=== PATIENT | female | born 1975 | race Two or more races ===

== ENCOUNTER 2019-05-15 07:29 | Emergency (ER) | payer MEDICAID ==
[~2019-05-15] VITALS: Ht 160 cm; Wt 104.8 kg
[2019-05-15 08:07] VITALS: BP 129/89
[2019-05-15 08:14] LABS: Urine Bacteria FEW /hpf (None Seen); Urine Blood Negative /uL (Negative); Urine Mucus FEW (None Seen); Urine Specific Gravity 1.029 (1.001-1.035); Urine WBC 2 /hpf (0 - 5)
[2019-05-15 08:26] LABS: Basophils # (auto) 0.1 uL; Basophils % (auto) 0.6 % (0.0-2.0); Eosinophils # (auto) 0 uL; Eosinophils % (auto) 0.1 % (0.0-7.0); Hematocrit 43.5 % (36.0-46.0); Hemoglobin 14.7 g/dL (12.2-16.2); Lymphocytes # (auto) 0.9 uL; Lymphocytes % (auto) 9.3 % (10.0-50.0); Mean Corpuscular Hemoglobin 29.9 pg (28.0-32.0); Mean Corpuscular Hgb Conc. 33.9 g/dL (32.0-36.0); Mean Corpuscular Volume 88.3 fL (80.0-100.0); Monocytes # (auto) 0.6 uL; Neutrophils # (auto) 8.4 uL; Platelet Count (auto) 229 10^3/uL (140-450); Red Blood Cells 4.92 10^6/uL (4.0-5.20); Red Cell Distribution Width 13.8 % (11.8-14.3)
[2019-05-15 08:50] LABS: Albumin 4.1 g/dL (3.4-5.0); BUN/Creatinine Ratio 19.5; Calcium 9.1 mg/dL (8.5-10.1); Potassium 4.2 mmol/L (3.5-5.1)
[2019-05-15 08:53] LABS: Bilirubin, Total 0.6 mg/dL (0.2-1.0); Total Protein 8.1 g/dL (6.4-8.2)
[2019-05-15] MEDS ORDERED: DICYCLOMINE HCL 10 MG CAP PO ONE (09:15)
[2019-05-15] MEDS ORDERED: ONDANSETRON ODT 4 MG TAB PO ONE (09:15)
[2019-05-15] MEDS ORDERED: KETOROLAC TROMETH 60MG/2ML VIAL IM ONE (09:30)
[2019-05-15] MEDS ORDERED: PANTOPRAZOLE 40 MG TAB PO ONE (09:30)
== END 2019-05-15 10:24 | disposition home or self-care (01) ==
LOC: ER 07:38
DX: K52.9 Noninfective gastroenteritis and colitis, unspecified (principal); R16.0 Hepatomegaly, not elsewhere classified; Z86.39 Personal history of other endocrine, nutritional and metabolic disease
CPT/HCPCS: 36415; 76705; 80053; 81001; 81025; 83690; 85025; 96372; 99284; J1885; Q0162

== ENCOUNTER 2019-10-06 17:44 | Emergency (ER) | payer MEDICAID ==
[~2019-10-06] VITALS: Ht 160 cm; Wt 97.5 kg
[2019-10-06 20:00] VITALS: BP 128/90
== END 2019-10-06 20:47 | disposition home or self-care (01) ==
LOC: ER 17:44
DX: S93.602A Unspecified sprain of left foot, initial encounter (principal); S93.402A Sprain of unspecified ligament of left ankle, initial encounter; W19.XXXA Unspecified fall, initial encounter; Y93.89 Activity, other specified; Y99.8 Other external cause status; Y92.89 Other specified places as the place of occurrence of the external cause
CPT/HCPCS: 73610; 73630

== ENCOUNTER 2021-03-17 15:21 | Inpatient (IN) | payer MEDICAID ==
[~2021-03-17] VITALS: Ht 160 cm; Wt 76.4 kg
[2021-03-17] MEDS ORDERED: SODIUM CHLORIDE 0.9% 1,000 ML IVB ONE (16:00)
[2021-03-17 16:22] LABS: Basophils # (auto) 0 10 ^3/uL (0-0.2); Basophils % (auto) 0.4 % (0.0-2.0); Eosinophils # (auto) 0 10 ^3/uL (0-0.8); Eosinophils % (auto) 0.2 % (0.0-7.0); Hematocrit 38.4 % (36.0-46.0); Lymphocytes # (auto) 1.6 10 ^3/uL (0.4-5.4); Mean Corpuscular Hemoglobin 30.5 pg (28.0-32.0); Mean Corpuscular Hgb Conc. 33.8 g/dL (32.0-36.0); Mean Corpuscular Volume 90.4 fL (80.0-100.0); Monocytes # (auto) 0.7 10 ^3/uL (0-1.3); Monocytes % (auto) 8.6 % (0.0-12.0); Neutrophils # (auto) 6.4 10 ^3/uL (1.6-8.6); Neutrophils % (auto) 72.8 % (37.0-80.0); Red Blood Cells 4.25 10^6/uL (4.0-5.20); Red Cell Distribution Width 12.9 % (11.8-14.3); White Blood Cell 8.7 10^3/uL (4.4-10.8)
[2021-03-17 16:58] LABS: Anion Gap 10 (5-15); Blood Urea Nitrogen 16 mg/dL (7-18); Calcium 8.9 mg/dL (8.5-10.1); Carbon Dioxide 21 mmol/L (21-32); Chloride 110 mmol/L (98-107); Glucose 99 mg/dL (74-106); Magnesium 2.5 mg/dL (1.6-2.6); Potassium 3.5 mmol/L (3.5-5.1); Sodium 141 mmol/L (136-145)
[2021-03-17 17:05] LABS: Alanine Aminotransferase 379 U/L (13-56); Alkaline Phosphatase 116 U/L (45-117); Aspartate Aminotransferase 249 U/L (15-37); BUN/Creatinine Ratio 25.8; Bilirubin, Total 1.6 mg/dL (0.2-1.0); GFR African American 134 mL/min; GFR Non-African American 111 mL/min; Total Protein 7.6 g/dL (6.4-8.2)
[2021-03-17] MEDS ORDERED: cefTRIAXone 1GM/50ML D5W 50 ML IV ONE (18:00)
[2021-03-17] MEDS ORDERED: HYDROcodone-ACET 5/325MG TAB PO PRN (19:00)
[2021-03-17] MEDS ORDERED: TEMAZEPAM 15 MG CAP PO PRN (19:00)
[2021-03-17] MEDS ORDERED: NITROGLYCERIN 0.4 MG SL TAB SL PRN (19:00)
[2021-03-17] MEDS ORDERED: DOCUSATE SOD 100 MG CAP PO PRN (19:00)
[2021-03-17] MEDS ORDERED: ONDANSETRON HCL 4 MG/2 ML VIAL IV PRN (19:00)
[2021-03-17] MEDS ORDERED: ACETAMINOPHEN 325 MG TAB PO PRN (19:00)
[2021-03-17] MEDS ORDERED: MORPHINE SULFATE INJECTION 2 MG/ML SYRG IV PRN (19:00)
[2021-03-17 21:15] VITALS: BP 101/60
[2021-03-17 22:25] VITALS: BP 101/60
[2021-03-17] MEDS ORDERED: ASCO500T11 PO (23:13)
[2021-03-17] MEDS ORDERED: MULTCAP45 PO (23:13)
[2021-03-17] MEDS ORDERED: THIA50TA7 PO (23:13)
[2021-03-17] MEDS ORDERED: POM (23:13)
[2021-03-17] MEDS ORDERED: LEVO88TA4 PO (23:13)
[2021-03-18] MEDS: SODIUM CHLORIDE 0.9% 1,000 ML IV SCH ×4 (00:04→22:06)
[2021-03-18 05:25] VITALS: BP 99/50
[2021-03-18 06:46] LABS: Basophils # (auto) 0 10 ^3/uL (0-0.2); Basophils % (auto) 0.6 % (0.0-2.0); Eosinophils # (auto) 0.1 10 ^3/uL (0-0.8); Eosinophils % (auto) 1.1 % (0.0-7.0); Hematocrit 33.7 % (36.0-46.0); Hemoglobin 11.6 g/dL (12.2-16.2); Lymphocytes # (auto) 3.1 10 ^3/uL (0.4-5.4); Lymphocytes % (auto) 40.8 % (10.0-50.0); Mean Corpuscular Hemoglobin 31.4 pg (28.0-32.0); Mean Corpuscular Hgb Conc. 34.4 g/dL (32.0-36.0); Mean Corpuscular Volume 91.3 fL (80.0-100.0); Monocytes # (auto) 0.6 10 ^3/uL (0-1.3); Monocytes % (auto) 7.7 % (0.0-12.0); Neutrophils # (auto) 3.8 10 ^3/uL (1.6-8.6); Neutrophils % (auto) 49.8 % (37.0-80.0); Red Blood Cells 3.69 10^6/uL (4.0-5.20); Red Cell Distribution Width 12.6 % (11.8-14.3); White Blood Cell 7.6 10^3/uL (4.4-10.8)
[2021-03-18 06:56] LABS: Potassium 4.3 mmol/L (3.5-5.1)
[2021-03-18 07:01] LABS: Albumin 3.4 g/dL (3.4-5.0); BUN/Creatinine Ratio 27.7; Calcium 8.2 mg/dL (8.5-10.1)
[2021-03-18 07:16] LABS: Bilirubin, Total 0.7 mg/dL (0.2-1.0); Total Protein 6.5 g/dL (6.4-8.2)
[2021-03-18 09:00] VITALS: BP 97/54
[2021-03-18] MEDS: cefTRIAXone 1GM/50ML D5W 50 ML IV SCH (12:52)
[2021-03-18 13:00] VITALS: BP 91/56
[2021-03-18 17:00] VITALS: BP 99/58
[2021-03-18 22:00] VITALS: BP 100/65
[2021-03-19] MEDS: SODIUM CHLORIDE 0.9% 1,000 ML IV SCH ×3 (04:38→21:00)
[2021-03-19 05:00] VITALS: BP 98/55
[2021-03-19] MEDS: PANTOPRAZOLE 40 MG/10 ML VIAL INJ IV SCH (08:40)
[2021-03-19] MEDS: cefTRIAXone 1GM/50ML D5W 50 ML IV SCH (08:40)
[2021-03-19 09:00] VITALS: BP 101/61
[2021-03-19 11:41] LABS: Urine Bacteria FEW /hpf (None Seen); Urine Blood Negative /uL (Negative); Urine Specific Gravity 1.004 (1.001-1.035); Urine WBC 1 /hpf (0 - 5)
[2021-03-19 13:00] VITALS: BP 122/71
[2021-03-19 17:00] VITALS: BP 101/65
[2021-03-19 22:00] VITALS: BP 112/64
[2021-03-20 05:00] VITALS: BP 107/66
[2021-03-20] MEDS: SODIUM CHLORIDE 0.9% 1,000 ML IV SCH ×2 (05:45→16:30)
[2021-03-20 09:00] VITALS: BP 111/63
[2021-03-20] MEDS: PANTOPRAZOLE 40 MG/10 ML VIAL INJ IV SCH (09:41)
[2021-03-20] MEDS: cefTRIAXone 1GM/50ML D5W 50 ML IV SCH (09:41)
[2021-03-20 10:06] LABS: Albumin 3.2 g/dL (3.4-5.0); Calcium 8.5 mg/dL (8.5-10.1); Potassium 4.2 mmol/L (3.5-5.1)
[2021-03-20 10:10] LABS: BUN/Creatinine Ratio 14.6; Bilirubin, Total 0.6 mg/dL (0.2-1.0); Total Protein 6.7 g/dL (6.4-8.2)
[2021-03-20 12:56] VITALS: BP 107/70
[2021-03-20 16:59] LABS: INR 1.12 (0.9-1.15)
[2021-03-20 17:00] VITALS: BP 100/50
[2021-03-20 22:00] VITALS: BP 102/66
[2021-03-21] MEDS: SODIUM CHLORIDE 0.9% 1,000 ML IV SCH ×3 (01:00→12:38)
[2021-03-21 05:00] VITALS: BP 96/54
[2021-03-21] MEDS ORDERED: cefTRIAXone 1GM/50ML D5W 50 ML IV ONE (06:59)
[2021-03-21] MEDS ORDERED: BUPIVACAINE 0.25% INJ 50ML VIAL ONE (07:04)
[2021-03-21] MEDS ORDERED: ROCURONIUM 10MG/ML 10ML VIAL IV ONE (07:42)
[2021-03-21] MEDS ORDERED: MIDAZOLAM HCL 2MG/2ML 2ml VIAL (1mg/ml) ONE (07:42)
[2021-03-21] MEDS ORDERED: MEPERIDINE HCL (50 MG/ML) 1 ML VIAL ONE (07:42)
[2021-03-21] MEDS ORDERED: fentaNYL CITRATE 100 MCG/2 ML VL ONE (07:42)
[2021-03-21] MEDS ORDERED: HYDROmorphone HCL 2 MG/ML VL IV PRN (08:15)
[2021-03-21] MEDS ORDERED: DexAMETHasone SOD PHOS 10MG/1ML VIAL INJ ONE (08:15)
[2021-03-21] MEDS ORDERED: fentaNYL CITRATE 100 MCG/2 ML VL IV PRN (08:15)
[2021-03-21] MEDS ORDERED: MORPHINE SULFATE 4 MG/ML SYR/VIAL IV PRN (08:15)
[2021-03-21] MEDS ORDERED: ePHEDrine SULFATE 50 MG/ML AMP IV PRN (08:15)
[2021-03-21] MEDS ORDERED: ONDANSETRON HCL 4 MG/2 ML VIAL IV PRN (08:15)
[2021-03-21] MEDS ORDERED: LABETALOL HCL 5 MG/ML 4ML SYRINGE IV PRN (08:15)
[2021-03-21] MEDS ORDERED: ONDANSETRON HCL 4 MG/2 ML VIAL ONE (08:28)
[2021-03-21] MEDS ORDERED: PROPOFOL 10 MG/ML 20 ML IV ONE (08:28)
[2021-03-21] MEDS: cefTRIAXone 1GM/50ML D5W 50 ML IV SCH (09:00)
[2021-03-21] MEDS: PANTOPRAZOLE 40 MG/10 ML VIAL INJ IV SCH (11:35)
[2021-03-21] MEDS: MORPHINE SULFATE 4 MG/ML SYR/VIAL IV PRN (11:36)
[2021-03-21 13:00] VITALS: BP 106/74
[2021-03-21 17:00] VITALS: BP 92/54
[2021-03-21 22:00] VITALS: BP 101/63
[2021-03-22] MEDS: SODIUM CHLORIDE 0.9% 1,000 ML IV SCH ×3 (00:53→15:40)
[2021-03-22] MEDS: MORPHINE SULFATE 4 MG/ML SYR/VIAL IV PRN (03:51)
[2021-03-22 05:00] VITALS: BP 95/60
[2021-03-22 06:53] LABS: Basophils # (auto) 0 10 ^3/uL (0-0.2); Basophils % (auto) 0.2 % (0.0-2.0); Eosinophils # (auto) 0 10 ^3/uL (0-0.8); Eosinophils % (auto) 0.1 % (0.0-7.0); Hematocrit 34.1 % (36.0-46.0); Hemoglobin 11.7 g/dL (12.2-16.2); Lymphocytes # (auto) 1.4 10 ^3/uL (0.4-5.4); Lymphocytes % (auto) 10.5 % (10.0-50.0); Mean Corpuscular Hemoglobin 30.7 pg (28.0-32.0); Mean Corpuscular Hgb Conc. 34.3 g/dL (32.0-36.0); Mean Corpuscular Volume 89.5 fL (80.0-100.0); Monocytes # (auto) 0.8 10 ^3/uL (0-1.3); Monocytes % (auto) 6.1 % (0.0-12.0); Neutrophils % (auto) 83.1 % (37.0-80.0); Red Blood Cells 3.81 10^6/uL (4.0-5.20); Red Cell Distribution Width 12.5 % (11.8-14.3); White Blood Cell 13.2 10^3/uL (4.4-10.8)
[2021-03-22 07:10] LABS: Potassium 3.6 mmol/L (3.5-5.1)
[2021-03-22 07:21] LABS: Albumin 3.2 g/dL (3.4-5.0); BUN/Creatinine Ratio 6.7; Bilirubin, Total 0.6 mg/dL (0.2-1.0); Calcium 8.6 mg/dL (8.5-10.1); Magnesium 2.1 mg/dL (1.6-2.6); Total Protein 6.3 g/dL (6.4-8.2)
[2021-03-22 08:58] VITALS: BP 102/59
[2021-03-22] MEDS: cefTRIAXone 1GM/50ML D5W 50 ML IV SCH (10:09)
[2021-03-22] MEDS: PANTOPRAZOLE 40 MG/10 ML VIAL INJ IV SCH (10:09)
[2021-03-22 13:07] VITALS: BP 94/52
[2021-03-22 16:54] VITALS: BP 94/52
== END 2021-03-22 17:30 | disposition home or self-care (01) | DRG 263 ==
LOC: ER 15:21 → EDBD 15:21 → TELE 18:57 → TELE-CENTR 20:57
PROVIDERS: ADMIT Nurse Practitioner; ATTEND Nurse Practitioner
PROC: 0W9G4ZZ Drainage of Peritoneal Cavity, Percutaneous Endoscopic Approach (ICD-10-PCS; 2021-03-21)
PROC: 0FT44ZZ Resection of Gallbladder, Percutaneous Endoscopic Approach (ICD-10-PCS; principal; 2021-03-21 07:47)
DX: K80.00 Calculus of gallbladder with acute cholecystitis without obstruction (principal); K65.1 Peritoneal abscess; K65.3 Choleperitonitis; K85.10 Biliary acute pancreatitis without necrosis or infection; J18.9 Pneumonia, unspecified organism; K57.90 Diverticulosis of intestine, part unspecified, without perforation or abscess without bleeding; Z20.822 Contact with and (suspected) exposure to COVID-19; Z98.84 Bariatric surgery status; Z82.49 Family history of ischemic heart disease and other diseases of the circulatory system
CPT/HCPCS: 36415; 71045; 74176; 74181; 76705; 80053; 81001; 82150; 83605; 83690; 83735; 84484; 84702; 85025; 85610; 87040; 87426; 93005; 96361; 96365; 96366; C9113; G0378; J0696; J1100; J2250; J2405; J2704; J3490

== ENCOUNTER 2025-03-01 12:59 | Emergency (ER) | payer MEDICAID ==
[~2025-03-01] VITALS: Ht 160 cm; Wt 87.9 kg
[~2025-03-01 12:59] MED LIST: ASCO500T11 PO; LEVO88TA4 PO; MULTCAP45 PO; POM; THIA50TA7 PO
--- NOTE | 2025-03-01 13:43 | ED.PDOC ---
Musculoskeletal HPI Comments 49 year old female with a past medical history of thyroid disease presents to the emergency department with a chief complaint of atraumatic LT arm pain onset 2 days. Patient states she began experiencing LT arm pain 2 days ago, noticed pain radiates to LT cervical region. Worsens with movement. Pain rated as moderate. Also notes she began experiencing tingling sensation of LT arm, has slight relief with massage. Patient has taken Ibuprofen 600 mg and well as Tramadol 50 mg, with temp improvement of symptoms. No other symptoms or modifying factors present at this time. Denies fevers, chills, sweats Denies fall, injury, trauma, Time Seen by MD: 13:30 Primary Care Provider: DR. ELLIS Reviewed Notes: Nurses Notes, Medications, Allergies Allergies: Uncoded Allergies: SULFA (Allergy, Unknown, ANGIOEDEMA, 03/20/21) Home Meds Active Scripts Naproxen (Naproxen) 500 Mg Tab, 500 MG PO BIDP PRN for 10 Days, #20 TAB 0 Refills Prov:REAGAN FRASER MANAGER OF CUSTOMER BILLING 03/01/25 Reported Medications Multiple Vitamin (Multivitamins) Unknown Strength Cap, PO DAILY, #30 CAP 3 Refills 03/17/21 Ascorbic Acid (VITAMIN C TABLET) Unknown Strength Tb, PO DAILY, #30 TAB 3 Refills 03/17/21 Thiamine Hcl (Vitamin B-1) Unknown Strength Tab, PO, TAB 03/17/21 Patients Own Medication (PATIENTS OWN MEDICATION) Unknown Strength . PTS OWN MED-OBTAIN FROM PT AND SEND TO RX DRUG: FREQ: RX# EXP: DATE DISP: TECH: [facility]: 03/17/21 Levothyroxine Sodium (Levothyroxine Sodium) 88 Mcg Tab, 88 MCG PO QAM for 30 Days, MCG 03/17/21 Information Source: Patient Mode of Arrival: Ambulatory Location: Left Extremity Location: Arm Timing: Days Prehospital treatment: Pain Meds Severity: Moderate Able to Move Extremity: Yes Bear Weight: Limited Pain: Moderate Mechanism: Spontaneous Circumstances: Spontaneous Onset of Symptoms: Spontaneous Symptoms: Pain DVT Risk Factors: NONE Associated signs and symptoms: Arm pain Past Medical History PAST MEDICAL HISTORY: Thyroid Surgical History: Cholecystectomy [employer] History: Denies all [employer] Hx Family History Family History: Reviewed,noncontributory to illness Social History Smoker: Non-Smoker Alcohol: Rarely Drugs: Denies Drug Use Lives In: Home All Other Systems: Reviewed and Negative (as per HPI) Physical Exam General Appearance: Normal HEENT: Normal ENT Inspection, Pharynx Normal, TMs Normal Neck: Full Range of Motion, Non-Tender, Normal, Normal Inspection Respiratory: Chest Non-Tender, Lungs Clear, No Accessory Muscle Use, No Respiratory Distress, Normal Breath Sounds Cardiovascular: No Murmur, No Gallop, Regular Rate/Rhythm Breast Exam: Deferred Gastrointestinal: No Organomegaly, Non Tender, No Pulsatile Mass, Normal Bowel Sounds, Soft Genitalia: Deferred Pelvic: Deferred Rectal: Deferred Extremities: No calf tenderness, Normal capillary refill, Non-tender, No pedal edema Musculoskeletal : Location: Left Extremity Location: Arm (Left Shoulder: No gross abnormality on inspection. No shoulder drop visible. No clavicular tenderness on palpation. Palpation tenderness to coracoid process and acromion process. No scapular, supraspinatus, infraspinatus tenderness to touch. Limited flexion passive movement due to pain. Pain with abduction. Apley test, Palma test and Empty can test Positive) Apperance: Normal Neurologic: Alert, railroad supervisor of engines II-XII nml as Tested, No Motor Deficits, Normal Affect, Normal Mood, No Sensory Deficits Cerebellar Function: Normal Reflexes: Normal Skin: Dry, Normal Color, Warm Lymphatic: No Adenopathy Was a procedure done? Was a procedure done?: No Differential Diagnosis EXT Differential Diagnosis: Sprain X-Ray, Labs, Meds, VS Vital Signs Date Time Temp Pulse Resp B/P (MAP) Pulse Ox O2 Delivery O2 Flow Rate FiO2 03/01/25 15:28 76 17 98 Room Air 03/01/25 15:28 98.5 76 17 143/55 (84) 98 98.5 03/01/25 13:20 98.5 87 17 118/79 (92) 100 98.5 Lab Test 03/01/25 14:02 03/01/25 13:45 Range/Units Urine Color Yellow Yellow Urine Clarity Turbid H Clear Urine pH 6.0 5.0-9.0 Urine Specific [place] 1.045 H 1.001-1.035 Urine Protein 1+ H Negative Urine Ketones 1+ H Negative Urine Blood 3+ H Negative /uL Urine Nitrite Negative Negative Urine Bilirubin Negative Negative Urine Urobilinogen 2 H Negative mg/dL Urine Leukocyte Esterase Trace Negative /uL Urine RBC 120 0 - 4 /hpf Urine Microscopic WBC 4 0-5 /HPF Urine Squamous Epithelial Cells Few <5 /hpf Urine Calcium Oxalate Crystals Few None Seen Urine Bacteria None seen None Seen /hpf Urine Mucus Few None Seen Urine Glucose Normal Normal mg/dL White Blood Count 7.1 4.4-10.8 10^3/uL Red Blood Count 4.40 4.0-5.20 10^6/uL Hemoglobin 12.3 12.2-16.2 g/dL Hematocrit 37.3 36.0-46.0 % Mean Corpuscular Volume 84.8 80.0-100.0 fL Mean Corpuscular Hemoglobin 28.0 28.0-32.0 pg Mean Corpuscular Hemoglobin Concent 33.0 32.0-36.0 g/dL Red Cell Distribution Width 15.0 H 11.8-14.3 % Platelet Count 240 140-450 10^3/uL Mean Platelet Volume 8.1 6.9-10.8 fL Neutrophils (%) (Auto) 56.3 37.0-80.0 % Lymphocytes (%) (Auto) 33.8 10.0-50.0 % Monocytes (%) (Auto) 8.5 0.0-12.0 % Eosinophils (%) (Auto) 1.3 0.0-7.0 % Basophils (%) (Auto) 0.1 0.0-2.0 % Neutrophils # (Auto) 4.0 1.6-8.6 10 ^3/uL Lymphocytes # (Auto) 2.4 0.4-5.4 10 ^3/uL Monocytes # (Auto) 0.6 0-1.3 10 ^3/uL Eosinophils # (Auto) 0.1 0-0.8 10 ^3/uL Basophils # (Auto) 0 0-0.2 10 ^3/uL Nucleated Red Blood Cells 0.0 % Sodium Level 142 136-145 mmol/L Potassium Level 4.8 3.5-5.1 mmol/L Chloride Level 107 98-107 mmol/L Carbon Dioxide Level 26 20-31 mmol/L Anion Gap 9 5-15 Blood Urea Nitrogen 9 9-23 mg/dL Creatinine 0.79 0.550-1.02 mg/dL Glomerular Filtration Rate Calc 92 >90 mL/min BUN/Creatinine Ratio 11.4 10.0-20.0 Serum Glucose 110 H 74-106 mg/dL Calcium Level 10.4 8.7-10.4 mg/dL Current Medications Medications (Trade) Dose Ordered Sig/Denise Route Start Time Stop Time Status Last Admin Ketorolac Tromethamine (Toradol Injection) 60 mg ONCE ONCE IM 03/01/25 15:00 03/01/25 15:01 DC 03/01/25 15:21 Methylprednisolone Sodium Succinate (Solu Medrol) 125 mg ONCE ONCE IM 03/01/25 15:00 03/01/25 15:01 DC 03/01/25 15:21 X-Ray, Labs, Meds, VS Comment 49 year old female with a past medical history of thyroid disease presents to the emergency department with a chief complaint of LT arm pain onset 2 days. Patient arrives alert and oriented, ABC's intact, afebrile, vital signs stable, saturating well in room air labs were ordered. CBC was ordered to exclude anemia, blood loss, or infection. BMP was ordered to exclude electrolyte abnormalities, renal failure, dehydration, hyperglycemia Urinalysis was ordered to rule out UTI or hematuria. + neck pain radiating to affected upper extremitie ED Workup: Defer C-Spine imaging given negative by NEXUS criteria Given History, Exam the patient appears to have a cervical radiculopathy. Patient appears to be low risk for complications or other emergent conditions such as anginal equivalent, cervical instability, arterial dissection, osteomyelitis, epidural abscess, c-spine fracture, CVA, other spinal emergencies Rx: NSAIDs, outpatient physical therapy evaluation and recommendation for home exercises in the interim Disposition: Discharge. The patient has been given strict return precautions and understands the need to follow up within 48 hours with their primary care provider Patient is stable for discharge at this time. External notes reviewed. Test results and diagnostic imaging interpreted. All diagnostic findings, discharge care, education and instructions provided Follow-up with PCP in 2 to 3 days Patient verbalized understanding and agreed to treatment plan Vital signs stable, afebrile, no acute distress noted Patient ambulatory with strong steady gait Advised to return precautions for any new or worsening symptoms, return to ER immediately for re-evaluation Patient is aware that the purpose of this visit was for an acute medical emergency requiring emergent stabilization. Chronic conditions, including malignancies have not been ruled out. Patient is instructed to follow up with PCP as directed and discharge instructions for continued care and workup. If unable to arrange follow-up, patient is to return to the emergency department for reassessment. Patient (parent or legal guardian if applicable) was given verbal and written discharge instructions and acknowledges understanding. Additional MDM Review of External, Non-ED records: External records reviewed. Discussion with independent historian (EMS, family) history obtained from the patient/parents (if applicable) at bedside Chronic conditions affecting care: None Social determinants of health affecting care: None Consideration of admission (observation or admission): I considered escalation of care to admission for this patient, however given the reassuring workup, the patient is safe for outpatient management. Time of 1ST Reevaluation: 14:00 Reevaluation 1ST: Improved Patient Education/Counseling: Diagnosis, Treatment Family Education/Counseling: No Family Present Departure 1 Departure Time of Disposition: 16:13 Impression: Primary Impression: Cervical radiculopathy Disposition: HOME / SELF CARE / HOMELESS Condition: Stable e-Prescriptions Naproxen (Naproxen) 500 Mg Tab 500 MG PO BIDP PRN for 10 Days, #20 TAB 0 Refills Prov: REAGAN FRASER NP 03/01/25 Critical Care Note Critical Care Time?: No Stability Stability form required: No Heart Score Heart Score: Heart Score Response (Comments) Value History N/A 0 EKG N/A 0 Age N/A 0 Risk Factors N/A 0 Troponin N/A 0 Total 0 I personally scribed for REAGAN FRASER NP ([email or web address]) on 03/01/25 at 13:43. Electronically submitted by Nora Humphreys ([email or web address]). I personally scribed for REAGAN FRASER NP ([email or web address]) on 03/01/25 at 13:47. Electronically submitted by Nora Humphreys ([email or web address]). REAGAN FRASER MANAGER OF CUSTOMER BILLING Mar 01, 2025 13:43
[2025-03-01 13:57] LABS: Hematocrit 37.3 % (36.0-46.0); Hemoglobin 12.3 g/dL (12.2-16.2); Mean Corpuscular Hemoglobin 28.0 pg (28.0-32.0); Mean Corpuscular Volume 84.8 fL (80.0-100.0); Nucleated Red Blood Cells % 0.0 %
[2025-03-01 14:08] LABS: Anion Gap 9 (5-15); Carbon Dioxide 26 mmol/L (20-31); Potassium 4.8 mmol/L (3.5-5.1); Sodium 142 mmol/L (136-145)
[2025-03-01 14:09] LABS: Calcium 10.4 mg/dL (8.7-10.4); Chloride 107 mmol/L (98-107)
[2025-03-01 14:14] LABS: BUN/Creatinine Ratio 11.4 (10.0-20.0); Blood Urea Nitrogen 9 mg/dL (9-23); Glucose 110 mg/dL (74-106)
[2025-03-01 14:20] LABS: Urine Protein, UAD 1+ (Negative)
--- NOTE | 2025-03-01 14:55 | DVH ---
CLINICAL INDICATION: painOsteoarthritis TECHNIQUE: 3 radiographic views of the left shoulder were obtained. Comparison: None FINDINGS/IMPRESSION: There is no evidence of acute fracture or dislocation. The visualized joint space is well maintained. The alignment is anatomical. There is no radiopaque foreign body.
[2025-03-01] MEDS: methylPREDNISolone SOD SUCC 125 MG/2 ML VL IM ONE (15:21)
[2025-03-01] MEDS: KETOROLAC TROMETH 60MG/2ML VIAL IM ONE (15:21)
[2025-03-01 15:28] VITALS: BP 143/55; PULSE 76; RESP 17; TEMP 98.5; O2SAT 98
[2025-03-01] MEDS ORDERED: NAPR-746 PO (16:13)
== END 2025-03-01 17:05 | disposition home or self-care (01) ==
LOC: ER 12:59
DX: M54.12 Radiculopathy, cervical region (principal); F10.90 Alcohol use, unspecified, uncomplicated; Z88.2 Allergy status to sulfonamides; Z79.890 Hormone replacement therapy; Z90.49 Acquired absence of other specified parts of digestive tract; Z79.899 Other long term (current) drug therapy; Y90.9 Presence of alcohol in blood, level not specified
CPT/HCPCS: 36415; 73030; 80048; 81001; 85025; 96372; 99284; J1885; J2919